=== PATIENT | female | born 1985 | race Caucasian/White ===

== ENCOUNTER 2022-06-19 12:25 | Emergency (ER) | payer MEDICAID, OTHER ==
[~2022-06-19] VITALS: Ht 157.5 cm; Wt 52.2 kg
[2022-06-19 12:25] VITALS: BP_SYST 126
--- NOTE | 2022-06-19 12:43 | NUR ---
PT BIB SELF FROM HOME CC SOB, CHEST PRESSURE, PAIN ON INSPIRATION, WHEEZING AND COUGHING NO PRODUCTION. NO PAST MEDICAL HX.
--- NOTE | 2022-06-19 13:19 | NUR ---
DR COLE AT BEDSIDE FOR EVALUATION
[2022-06-19 13:20] LABS: BASOPHILS % (AUTO) 0.4 % (0.0-2.0); EOSINOPHILS # (AUTO) 0.2 K/uL (0.0-0.4); EOSINOPHILS % (AUTO) 2.8 % (0.0-4.0); HEMATOCRIT 38.5 % (36-48); LYMPHOCYTES # (AUTO) 1.4 K/uL (1.0-5.5); LYMPHOCYTES % (AUTO) 21.3 % (20.5-51.5); MEAN CORPUSCULAR HEMOGLOBIN 29 pg (27-31); MEAN CORPUSCULAR HGB CONC 34 % (32-36); MEAN CORPUSCULAR VOLUME 87 fL (79.0-98.0); MONOCYTES # (AUTO) 0.4 K/uL (0.0-1.0); MONOCYTES % (AUTO) 5.5 % (1.7-9.3); NEUTROPHILS # (AUTO) 4.6 K/uL (1.8-7.7); PLATELET COUNT (AUTO) 170 K/uL (130-430); RED BLOOD CELL COUNT(AUTO) 4.43 MIL/uL (4.2-6.2); RED CELL DISTRIBUTION WIDTH 13.4 % (9.0-15.0); WHITE BLOOD COUNT (AUTO) 6.6 K/uL (4.8-10.8)
[2022-06-19 13:40] LABS: CALCIUM 8.9 mg/dL (8.4-11.0); CREATININE 0.75 mg/dL (0.55-1.30)
[2022-06-19 14:02] LABS: ALBUMIN 3.6 g/dL (3.4-4.8); TOTAL BILIRUBIN 0.8 mg/dL (0.0-1.0)
[2022-06-19] MEDS ORDERED: ALBUTEROL SULFATE 0.083% 2.5 MG/3 ML VIAL.NEB INH ONE (14:30)
--- NOTE | 2022-06-19 14:30 | NUR ---
PT NOTES CRAMPING AND LOWER ABDOMINAL PAIN.
--- NOTE | 2022-06-19 15:22 | NUR ---
pt with radiology dept.
[2022-06-19] MEDS ORDERED: ALBMDI INH (16:50)
--- NOTE | 2022-06-19 16:53 | NUR ---
Patient given written and verbal discharge instructions and verbalizes understanding. ER MD discussed with patient the results and treatment provided. Patient in stable condition. ID arm band removed. Rx of ALBUTEROL given. Patient educated on pain management and to follow up with PMD. Pain Scale . Opportunity for questions provided and answered. Medication side effect fact sheet provided.
[2022-06-19 16:54] VITALS: BP_SYST 126
== END 2022-06-19 16:54 | disposition home or self-care (01) ==
LOC: SED 12:25
DX: O99.511 Diseases of the respiratory system complicating pregnancy, first trimester (principal); Z3A.01 Less than 8 weeks gestation of pregnancy; Z88.6 Allergy status to analgesic agent; Z79.899 Other long term (current) drug therapy
CPT/HCPCS: 80053; 84702; 85025; 85379; 36415; 93005; 93970; 76801; 94640; 99285; J7613